=== PATIENT | male | born 1955 | race Caucasian/White ===

== ENCOUNTER → 2025-06-22 07:35 | Outpatient (REF) | payer MEDICARE, OTHER, SELFPAY | LOC: RAD 07:35 | PROVIDERS: ATTENDING PHYSICIAN Physical Medicine & Rehabilitation | DX: S46.912A Strain of unspecified muscle, fascia and tendon at shoulder and upper arm level, left arm, initial encounter (principal); S46.911A Strain of unspecified muscle, fascia and tendon at shoulder and upper arm level, right arm, initial encounter; M25.512 Pain in left shoulder; M25.511 Pain in right shoulder | CPT/HCPCS: 76882 ==